=== PATIENT | female | born 1970 | race Hispanic/Latino ===

== ENCOUNTER 2017-01-16 22:24 | Emergency (ER) | payer OTHER ==
[2017-01-16 22:33] VITALS: BP 129/78
[2017-01-17] MEDS ORDERED: ULTRAM PO ONE (04:31)
[2017-01-17] MEDS ORDERED: PHENERGAN PO ONE (04:31)
--- NOTE | 2017-01-17 04:32 | Emergency Department Report ---
ED Fall HPI - General Chief Complaint: Fall Stated Complaint: FALL INJURY TO CHEST Time Seen by Provider: 01/17/17 03:43 Source: patient Mode of arrival: Ambulatory - History of Present Illness Initial Comments: 46F p/w c/o left ankle pain, lower back pain and right hip pain s/p fall. Patient states that she was walking in her home and accidentally stepped through a hole in the floor that was under construction. States her left leg and ankle went through but she did not fall through a hole all the way. Denies any loss of consciousness. States that she feels that she may have twisted her left ankle. Also complaining of right hip pain. Denies any significant chest pain or abdominal pain. Denies any neck pain. Denies any loss of consciousness. Denies any significant lacerations. Some small abrasions. States her tetanus vaccine is up-to-date. States that she went to [facility] but came to [facility] she did not want to wait longer. MD Complaint: fall Onset/Timin -: days(s) Fall Witnessed: yes, by family, yes, by bystander Place Fall Occurred: home Loss of Consciousness: none Prolonged Down Time?: no Symptoms Prior to Fall: none Location - Extremities: Left: Leg, Ankle Severity: moderate Severity scale (0 -10): 5 Quality: aching Context: tripped/slipped Associated Symptoms: denies - Related Data Previous Rx's Medication Instructions Recorded Last Taken Type Ibuprofen [Motrin] 800 mg PO Q8HR PRN #30 tablet 01/17/17 Unknown Rx traMADol [Ultram 50 MG tab] 50 mg PO Q6HR PRN #20 tablet 01/17/17 Unknown Rx Allergies Allergy/AdvReac Type Severity Reaction Status Date / Time codeine Allergy Rash Verified 01/16/17 22:36 morphine Allergy Rash Verified 01/16/17 22:36 Penicillins Allergy Rash Verified 01/16/17 22:36 Sulfa (Sulfonamide Allergy Anaphylaxis Verified 01/16/17 22:36 Antibiotics) ED Review of Systems ROS: Stated complaint: FALL INJURY TO CHEST Other details as noted in HPI Constitutional: denies: chills, fever Eyes: denies: eye pain, eye discharge, vision change ENT: denies: ear pain, throat pain Respiratory: denies: cough, shortness of breath, wheezing Cardiovascular: denies: chest pain, palpitations Endocrine: no symptoms reported Gastrointestinal: denies: abdominal pain, nausea, diarrhea Genitourinary: denies: urgency, dysuria, discharge Musculoskeletal: as per HPI. denies: back pain, joint swelling, arthralgia Skin: denies: rash, lesions Neurological: denies: headache, weakness, paresthesias Psychiatric: denies: anxiety, depression Hematological/Lymphatic: denies: easy bleeding, easy bruising ED Past Medical Hx - Past Medical History Additional medical history: IBS, IC - Surgical History Hx Cholecystectomy: Yes Additional Surgical History: Hyst - Social History Smoking Status: Current Every Day Smoker Substance Use Type: None - Medications Home Medications: Home Medications Medication Instructions Recorded Confirmed Last Taken Type Ibuprofen [Motrin] 800 mg PO Q8HR PRN #30 tablet 01/17/17 Unknown Rx traMADol [Ultram 50 MG tab] 50 mg PO Q6HR PRN #20 tablet 01/17/17 Unknown Rx ED Physical Exam - General Limitations: No Limitations General appearance: alert, in no apparent distress - Head Head exam: Present: atraumatic, normocephalic - Eye Eye exam: Present: PERRL, EOMI - ENT ENT exam: Present: mucous membranes moist - Neck Neck exam: Present: normal inspection, full ROM (neck flexion and extension fully intact) - Respiratory Respiratory exam: Present: normal lung sounds bilaterally (lungs clear to auscultation bilaterally). Absent: respiratory distress - Cardiovascular Cardiovascular Exam: Present: regular rate, normal rhythm. Absent: systolic murmur, diastolic murmur, rubs, gallop - GI/Abdominal GI/Abdominal exam: Present: soft (abdomen soft nontender nondistended 4 quadrants), normal bowel sounds - Extremities Exam Extremities exam: Present: normal inspection, full ROM (range of motion bilateral ankles knees and hips fully intact on clinical exam. Range of motion bilateral upper extremities at all joints clinically intact. Patient is ambulatory without assistance), tenderness (some tenderness overlying the right hip on palpation no visible ecchymosis) - Back Exam Back exam: Present: normal inspection, full ROM, paraspinal tenderness (patient has some L-spine paraspinal tenderness.) - Neurological Exam Neurological exam: Present: alert, oriented X3, CN II-XII intact, normal gait - Psychiatric Psychiatric exam: Present: normal affect, normal mood - Skin Skin exam: Present: warm, dry, intact, normal color. Absent: rash ED Course Vital Signs 01/16/17 01/16/17 22:29 22:36 Temperature 98.4 F 98.4 F Pulse Rate 77 80 Respiratory 18 18 Rate Blood Pressure 129/78 129/78 O2 Sat by Pulse 99 99 Oximetry ED Medical Decision Making - Medical Decision Making A/P: Foot sprain, lower back pain, hip pain 1-NEXUS criteria negative. Patient awake alert and oriented 3 no signs of head trauma 2-x-rays of extremities all negative. Patient is ambulatory without assistance. Triple antibiotic ointment to abrasions 3-short course tramadol and Zofran when necessary. 4- follow up with primary care doctor and orthopedics. Critical care attestation.: If time is entered above; I have spent that time in minutes in the direct care of this critically ill patient, excluding procedure time. ED Disposition Clinical Impression: Foot pain, left Fall Qualifiers: Encounter type: initial encounter Qualified Code(s): W19.XXXA - Unspecified fall, initial encounter Hip pain, acute Qualifiers: Laterality: right Qualified Code(s): M25.551 - Pain in right hip Disposition: DC-01 TO HOME OR SELFCARE Is pt being admited?: No Does the pt Need Aspirin: No Condition: Stable Instructions: Foot Sprain (ED), Back Pain (ED) Prescriptions: Ibuprofen [Motrin] 800 mg PO Q8HR PRN #30 tablet PRN Reason: Pain traMADol [Ultram 50 MG tab] 50 mg PO Q6HR PRN #20 tablet PRN Reason: Pain Referrals: [facility] [Outside] - 3-5 Days [facility] [Outside] - 3-5 Days [facility] [Provider Group] - 3-5 Days Forms: Accompanied Note, Work/School Release Form(ED)
--- NOTE | 2017-01-17 05:26 | XRay Report ---
FINAL REPORT EXAM: XR SPINE LUMBOSACRAL 2-3V HISTORY: fell thru hole lumbar spine/back pain TECHNIQUE: Three views of the lumbar spine were submitted. FINDINGS: The disc heights and alignment appear normal. There is no evidence of fracture. There is endplate spurring at several levels. The SI joints appear normal. The soft tissues are unremarkable. IMPRESSION: Endplate spurring at several levels. No evidence of fracture.
--- NOTE | 2017-01-17 05:32 | XRay Report ---
FINAL REPORT EXAM: XR HIP 2-3V RT HISTORY: s/p fall right hip pain COMPARISONS: None. FINDINGS: AP pelvis with frog-leg lateral view right hip The right hip joint is intact. No displaced pelvic or proximal femur fracture. Sacroiliac joints and the pubic symphysis are unremarkable. IMPRESSION: Unremarkable right hip radiographs. Consider additional imaging for worsening/persistent symptoms.
--- NOTE | 2017-01-17 05:33 | XRay Report ---
FINAL REPORT EXAM: XR FEMUR 2+V RT HISTORY: s/p fall rt femur pain COMPARISONS: None. FINDINGS: AP and lateral views right femur No bone lesion, periosteal reaction, or fracture. No deformity or gross malalignment. Mild osteoarthrosis in the right knee. IMPRESSION: Intact right femur.
--- NOTE | 2017-01-17 05:34 | XRay Report ---
FINAL REPORT EXAM: XR ANKLE 3+V LT HISTORY: s/p fall lt ankle pain COMPARISONS: None. FINDINGS: Three views left ankle Intact ankle mortise. No gross malalignment, deformity or acute fracture identified. Imaged joint spaces are within normal limits. Calcaneal insertional enthesophytes is noted. IMPRESSION: No fracture or gross malalignment involving the left ankle.
--- NOTE | 2017-01-17 05:35 | XRay Report ---
FINAL REPORT EXAM: XR FOOT 3+V LT HISTORY: s/p fall thru ceiling c/o left foot pain COMPARISONS: None. FINDINGS: Three nonweightbearing views left foot Suggested pes cavus. Otherwise no gross malalignment or deformity in the left foot. No displaced fracture or significant joint space abnormality within limits of nonweightbearing exam. Calcaneal insertional enthesophyte is noted. IMPRESSION: No acute left foot fracture identified.
== END 2017-01-17 06:50 | disposition home or self-care (01) ==
LOC: ED 22:24
DX: M79.672 Pain in left foot (principal); M25.552 Pain in left hip; F17.200 Nicotine dependence, unspecified, uncomplicated; Z88.6 Allergy status to analgesic agent; Z88.2 Allergy status to sulfonamides
CPT/HCPCS: 72100; 99283; Q0169